=== PATIENT | female | born 2000 ===

== ENCOUNTER → 2022-05-21 | Day surgery (SDC) | payer MEDICAID ==
[~2022-05-21] MED LIST: Acetaminophen/HYDROcodone 325-5 MG Tab ONE; Dexamethasone 4 MG/ML 5 ML MDV IVPUSH ONE; Ketorolac 30 MG/ML SDV IVPUSH ONE; Lactated Ringers 1,000 ML IV ONE; Lidocaine 2% 5 ML SDV INFILT ONE; Midazolam 1 MG/ML 2 ML SDV IVPUSH ONE; Ondansetron 4 MG/2 ML SDV IVPUSH ONE; Propofol 200 MG/20 ML SDV IV ONE
== END ==
LOC: MW.SDS 06:45
PROVIDERS: ATTEND Orthopaedic Surgery
DX: S62.306A Unspecified fracture of fifth metacarpal bone, right hand, initial encounter for closed fracture (principal); Z79.899 Other long term (current) drug therapy; Z20.822 Contact with and (suspected) exposure to COVID-19
CPT/HCPCS: 26608; 76000; A9270; J0690; J1100; J1885; J2250; J2405; J2704; J7120; 01820

== ENCOUNTER 2022-06-21 16:09 | Emergency (ER) | payer MEDICAID ==
[2022-06-21] MEDS ORDERED: Sodium Chloride 0.9% 1,000 ML IV ONE ×3 (16:10→23:57)
[2022-06-21] MEDS ORDERED: LORazepam 2 MG/ML SDV IVPUSH ONE (16:10)
[2022-06-21] MEDS ORDERED: Activated Charcoal/Sorbitol Susp 50 GM/240 ML Tube PO ONE (16:25)
[2022-06-21 17:09] LABS: CORONAVIRUS COVID-19 NAA NEGATIVE (NEGATIVE); INFLUENZA A NAA NEGATIVE (NEGATIVE); INFLUENZA B NAA NEGATIVE (NEGATIVE)
[2022-06-21 17:10] LABS: ACETAMINOPHEN 72.3 ug/mL; BLOOD UREA NITROGEN,BUN 9 mg/dL (7.0-18.0); CARBON DIOXIDE,CO2 17.1 mmol/L (21.0-32.0); CHLORIDE,CL 107 mmol/L (98-107); GLUCOSE RANDOM 81 mg/dL (74-106); POTASSIUM,K 3.2 mmol/L (3.5-5.1); SODIUM,NA 141 mmol/L (136-145)
[2022-06-21 17:14] LABS: ESTIMATED GFR 127 mL/min (>60)
[2022-06-21 20:16] LABS: ACETAMINOPHEN 51.4 ug/mL; CARBON DIOXIDE,CO2 19.6 mmol/L (21.0-32.0); POTASSIUM,K 3.5 mmol/L (3.5-5.1)
[2022-06-21] MEDS ORDERED: Sodium Chloride 0.9% 1,000 ML IV SCH (22:15)
[2022-06-21 23:43] LABS: CARBON DIOXIDE,CO2 16.9 mmol/L (21.0-32.0); POTASSIUM,K 4.4 mmol/L (3.5-5.1)
[2022-06-22] MEDS ORDERED: LORazepam 2 MG/ML SDV IVPUSH ONE ×2 (00:13→11:33)
[2022-06-22] MEDS ORDERED: Haloperidol Lactate 5 MG/ML SDV IM ONE ×2 (00:24→11:36)
[2022-06-22] MEDS ORDERED: Haloperidol Lactate 5 MG/ML SDV ONE ×2 (00:26→11:37)
[2022-06-22 03:57] LABS: CARBON DIOXIDE,CO2 21.6 mmol/L (21.0-32.0); POTASSIUM,K 3.6 mmol/L (3.5-5.1)
[2022-06-22] MEDS ORDERED: Sodium Chloride 0.9% 1,000 ML IV ONE (08:11)
[2022-06-22 09:58] LABS: CARBON DIOXIDE,CO2 20.3 mmol/L (21.0-32.0); POTASSIUM,K 3.7 mmol/L (3.5-5.1)
[2022-06-22] MEDS ORDERED: diphenhydrAMINE 50 MG/ML SDV IM ONE (11:37)
[2022-06-22] MEDS ORDERED: diphenhydrAMINE 50 MG/ML SDV ONE (11:38)
== END 2022-06-22 12:01 ==
LOC: MW.ED 16:09
DX: T50.992A Poisoning by other drugs, medicaments and biological substances, intentional self-harm, initial encounter (principal); Z20.822 Contact with and (suspected) exposure to COVID-19
CPT/HCPCS: 0240U; 36415; 71045; 80048; 80053; 80143; 80179; 80305; 80307; 81001; 81025; 84443; 85025; 87086; 93005; 96372; 96374; 96376; 99285; J1200; J1630; J2060; J7030

== ENCOUNTER 2022-12-17 12:01 | Emergency (ER) | payer MEDICAID | END 2022-12-17 13:49 | disposition home or self-care (01) | LOC: MW.ED 12:01 | DX: S62.356A Nondisplaced fracture of shaft of fifth metacarpal bone, right hand, initial encounter for closed fracture (principal); W22.8XXA Striking against or struck by other objects, initial encounter | CPT/HCPCS: 29125; 73130-26-RT; 73130-RT; 99283 ==

== ENCOUNTER 2023-02-01 18:21 | Emergency (ER) | payer MEDICAID ==
[2023-02-01] MEDS ORDERED: Sodium Chloride 0.9% 2.5 ML Syringe FLUSH PRN (19:22)
[2023-02-01] MEDS ORDERED: Sodium Chloride 0.9% 10 ML Syringe FLUSH PRN (19:22)
[2023-02-01] MEDS ORDERED: Ketorolac 30 MG/ML SDV IVPUSH ONE (19:24)
[2023-02-01] MEDS ORDERED: Prochlorperazine 10 MG/2 ML SDV IVPUSH ONE (19:24)
[2023-02-01] MEDS ORDERED: diphenhydrAMINE 50 MG/ML SDV IVPUSH ONE (19:24)
[2023-02-01] MEDS ORDERED: Sodium Chloride 0.9% 1,000 ML IV ONE (19:24)
[2023-02-01 19:56] LABS: BASOPHILS PERCENT AUTO 0.5 % (0.0-1.5); EOSINOPHILS PERCENT AUTO 0.2 % (0.0-7.0); HEMATOCRIT 46.2 % (36.0-46.0); LYMPHOCYTES ABSOLUTE AUTO 1.8 K/uL (0.6-2.4); LYMPHOCYTES PERCENT AUTO 28.5 % (16.0-40.0); MEAN CORPUSCULAR HEMOGLOBIN 30.7 pg (27.0-32.0); MEAN CORPUSCULAR HGB CONC 34.6 g/dL (31.0-37.0); MEAN CORPUSCULAR VOLUME 88.7 fL (80.0-98.0); MONOCYTES ABSOLUTE AUTO 0.7 K/uL (0.0-0.8); MONOCYTES PERCENT AUTO 11.2 % (0.0-15.0); NEUTROPHILS ABSOLUTE AUTO 3.8 K/uL (1.4-5.7); NEUTROPHILS PERCENT AUTO 59.6 % (48.0-80.0); NRBC ABSOLUTE 0 K/uL; PLATELET COUNT,PLT 315 K/uL (150-400); RED BLOOD CELL COUNT 5.21 M/uL (4.30-5.90); WHITE BLOOD CELL COUNT,WBC 6.41 K/uL (4.0-11.0)
== END 2023-02-01 21:20 | disposition home or self-care (01) ==
LOC: MW.ED 18:21
DX: S06.0X0A Concussion without loss of consciousness, initial encounter (principal); S00.83XA Contusion of other part of head, initial encounter; J45.909 Unspecified asthma, uncomplicated; Y04.2XXA Assault by strike against or bumped into by another person, initial encounter
CPT/HCPCS: 36415; 70450; 72125; 80307; 83880; 85025; 96361; 96374; 96375; 99284; J0780; J1200; J1885; J3490; J7030; 99283

== ENCOUNTER 2023-04-13 14:55 | Emergency (ER) | payer MEDICAID | END 2023-04-13 17:56 | disposition home or self-care (01) | LOC: MW.ED 14:55 | DX: S63.91XA Sprain of unspecified part of right wrist and hand, initial encounter (principal); X58.XXXA Exposure to other specified factors, initial encounter | CPT/HCPCS: 73130-26-RT; 73130-RT; 99283 ==